=== PATIENT | female | born 1950 | race Two or more races ===

== ENCOUNTER 2018-06-18 10:41 | Outpatient (CLI) | payer OTHER | END 2018-06-18 10:44 | disposition home or self-care (01) | LOC: SONOGRAMA 10:41 → MAMO-SONO 10:45 | DX: N60.01 Solitary cyst of right breast (principal) ==

== ENCOUNTER 2018-09-17 09:53 | Outpatient (CLI) | payer OTHER | END 2018-09-17 10:01 | disposition home or self-care (01) | LOC: SONOGRAMA 09:53 | DX: R10.11 Right upper quadrant pain (principal); R07.89 Other chest pain ==

== ENCOUNTER 2018-11-17 05:45 | Day surgery (SDC) | payer OTHER ==
[~2018-11-17 05:45] MED LIST: COZAAR50 MG PO; ZOCOR20 MG PO
[2018-11-17] MEDS ORDERED: ULTRACET PO (15:41)
[2018-11-17] MEDS ORDERED: NEURONTIN300 MG PO (15:42)
== END 2018-11-17 18:55 | disposition home or self-care (01) ==
LOC: CIR.AMB 05:45
DX: K80.10 Calculus of gallbladder with chronic cholecystitis without obstruction (principal)

== ENCOUNTER 2019-01-20 09:10 | Outpatient (CLI) | payer OTHER ==
[~2019-01-20 09:10] MED LIST changes: +NEURONTIN300 MG PO; +ULTRACET PO
== END 2019-01-20 14:39 | disposition home or self-care (01) ==
LOC: MAMO-SONO 09:10
DX: Z12.31 Encounter for screening mammogram for malignant neoplasm of breast (principal); Z87.898 Personal history of other specified conditions; N60.11 Diffuse cystic mastopathy of right breast

== ENCOUNTER 2019-02-15 09:37 | Outpatient (CLI) | payer OTHER | END 2019-02-15 09:46 | disposition home or self-care (01) | LOC: MAMO-SONO 09:37 | DX: N60.11 Diffuse cystic mastopathy of right breast (principal) ==